=== PATIENT | female | born 1960 | race African-American/Black ===

== ENCOUNTER 2018-01-06 18:32 | Inpatient (IN) | payer OTHER ==
[2018-01-06] MEDS: ONDANSETRON 4 MG INJ IV (22:11)
[2018-01-06] MEDS: morphine 4 MG/ML VIAL IV (22:11)
[2018-01-06] MEDS: SOD CHLORIDE 0.9% 1,000 ML IV (22:11)
[2018-01-06 22:38] LABS: ADD MAN DIFF? NO
[2018-01-06 22:43] LABS: WHITE BLOOD COUNT 11.8 10^3/ul (4.8-10.8)
[2018-01-06 22:43] LABS: ABNORMAL IP MESSAGE 1; BASOPHILS % 0.3 % (0.0-2.0); EOSINOPHILS # 0.1 10^3/ul (0.0-0.5); EOSINOPHILS % 0.8 % (0.0-7.0); HEMATOCRIT 41.5 % (37.0-47.0); HEMOGLOBIN 13.2 g/dl (12.0-16.0); LYMPHOCYTES # 1.5 10^3/ul (0.8-2.9); LYMPHOCYTES % 12.8 % (15.0-51.0); MEAN CORPUSCULAR HEMOGLOBIN 28.3 pg (29.0-33.0); MEAN CORPUSCULAR HGB CONC 31.8 g/dl (32.0-37.0); MEAN CORPUSCULAR VOLUME 88.9 fl (82.0-101.0); MEAN PLATELET VOLUME 13.3 fl (7.4-10.4); MONOCYTE # 0.5 10^3/ul (0.3-0.9); MONOCYTES % 4.1 % (0.0-11.0); NEUTROPHIL # 9.7 10^3/ul (1.6-7.5); NEUTROPHILS % 81.7 % (39.0-77.0); PLATELET COUNT 243 10^3/UL (140-415); RED BLOOD COUNT 4.67 10^6/ul (4.20-5.40); RED CELL DISTRIBUTION WIDTH 13.2 % (11.5-14.5)
[2018-01-06 22:46] LABS: POSITIVE DIFF @See below
[2018-01-06 23:02] LABS: INR 0.83; PROTIME 11.5 Sec (11.9-14.9); PT RATIO 0.9
[2018-01-06 23:04] LABS: PARTIAL THROMBOPLASTIN TIME 26.5 Sec (25.0-35.0)
[2018-01-06 23:06] LABS: ALANINE AMINOTRANSFERASE 10 IU/L (13-69); ALBUMIN 4.6 g/dl (3.3-4.9); ALBUMIN/GLOBULIN RATIO 0.93; ALKALINE PHOSPHATASE 91 IU/L (42-121); ANION GAP 22 (8-16); ASPARTATE AMINO TRANSFERASE 21 IU/L (15-46); BILIRUBIN,INDIRECT 0.6 mg/dl (0-1.1); BILIRUBIN,TOTAL 0.6 mg/dl (0.2-1.3); BLOOD UREA NITROGEN 37 mg/dl (7-20); CARBON DIOXIDE 23 mmol/L (21-31); CHLORIDE 98 mmol/L (97-110); CREATININE 2.12 mg/dl (0.44-1.00); GLUCOSE 286 mg/dl (70-220); LIPASE 32 U/L (23-300); POTASSIUM 4.9 mmol/L (3.5-5.1); SODIUM 138 mmol/L (135-144); TOTAL PROTEIN 9.5 g/dl (6.1-8.1)
[2018-01-06 23:17] LABS: TROPONIN-I < 0.012 ng/ml (0.000-0.120)
[2018-01-07] MEDS ORDERED: GLUCAGON 1 MG INJ IM (04:00)
[2018-01-07] MEDS ORDERED: GLUCOSE GEL 15 GRAM TUBE PO (04:00)
[2018-01-07] MEDS ORDERED: GLUCOSE GEL 15 GRAM TUBE BUCCAL (04:00)
[2018-01-07] MEDS ORDERED: VITAMIN A & D 5 GM OINT PACKET TOP (04:15)
[2018-01-07] MEDS: morphine 2 MG INJ IV ×3 (04:24→23:37)
[2018-01-07] MEDS: ONDANSETRON 4 MG INJ IV (04:24)
[2018-01-07] MEDS: DEXTROSE 5%-0.45% NACL 1,000 ML IV (04:30)
[2018-01-07] MEDS: INSULIN ASPART [NOVOLOG] 3 ML PEN SC ×5 (06:20→21:00)
[2018-01-07] MEDS: LORAZEPAM 2 MG INJ IV ×2 (06:42)
[2018-01-07 11:24] LABS: ADD MAN DIFF? NO
[2018-01-07 11:26] LABS: ABNORMAL IP MESSAGE 1; BASOPHILS % 0.1 % (0.0-2.0); EOSINOPHILS # 0.3 10^3/ul (0.0-0.5); EOSINOPHILS % 3.2 % (0.0-7.0); HEMATOCRIT 36.2 % (37.0-47.0); HEMOGLOBIN 11.8 g/dl (12.0-16.0); LYMPHOCYTES # 1.6 10^3/ul (0.8-2.9); LYMPHOCYTES % 20.4 % (15.0-51.0); MEAN CORPUSCULAR HEMOGLOBIN 29.1 pg (29.0-33.0); MEAN CORPUSCULAR HGB CONC 32.6 g/dl (32.0-37.0); MEAN CORPUSCULAR VOLUME 89.4 fl (82.0-101.0); MEAN PLATELET VOLUME 13.4 fl (7.4-10.4); MONOCYTE # 0.8 10^3/ul (0.3-0.9); MONOCYTES % 10.2 % (0.0-11.0); NEUTROPHIL # 5.1 10^3/ul (1.6-7.5); NEUTROPHILS % 65.7 % (39.0-77.0); PLATELET COUNT 203 10^3/UL (140-415); RED BLOOD COUNT 4.05 10^6/ul (4.20-5.40); RED CELL DISTRIBUTION WIDTH 13.1 % (11.5-14.5)
[2018-01-07 11:26] LABS: WHITE BLOOD COUNT 7.8 10^3/ul (4.8-10.8)
[2018-01-07 11:53] LABS: ANION GAP 16 (8-16); BLOOD UREA NITROGEN 42 mg/dl (7-20); CALCIUM 9.2 mg/dl (8.4-10.2); CARBON DIOXIDE 27 mmol/L (21-31); CHLORIDE 101 mmol/L (97-110); CREATININE 2.19 mg/dl (0.44-1.00); GLUCOSE 253 mg/dl (70-220); POTASSIUM 4.5 mmol/L (3.5-5.1); SODIUM 139 mmol/L (135-144)
[2018-01-07] MEDS: SOD CHLORIDE 0.45% 1,000 ML IV (14:32)
[2018-01-07] MEDS: NA PHOSPHATE/BIPHOS 133 ML ENEMA PR (17:19)
[2018-01-07 22:24] LABS: ADD UMIC YES; UR ASCORBIC ACID NEGATIVE (NEGATIVE); UR BACTERIA MANY /HPF (NONE SEEN); UR BILIRUBIN (Dip) NEGATIVE (NEGATIVE); UR BLOOD (Dip) 1+ mg/dL (NEGATIVE); UR CLARITY CLOUDY (CLEAR); UR COLOR RED (YELLOW); UR GLUCOSE (Dip) 2+ mg/dL (NEGATIVE); UR KETONES (Dip) NEGATIVE (NEGATIVE); UR LEUKOCYTE ESTERASE (Dip) 3+ Leu/ul (NEGATIVE); UR NITRITE (Dip) NEGATIVE (NEGATIVE); UR RBC 5 /HPF (0-5); UR SPECIFIC GRAVITY (Dip) 1.013 (1.003-1.030); UR SQUAMOUS EPITHELIAL CELL FEW /HPF (FEW); UR TOTAL PROTEIN (Dip) 2+ mg/dl (NEGATIVE); UR UROBILINOGEN (Dip) NEGATIVE (NEGATIVE); UR WBC > 182 /HPF (0-5)
[2018-01-07 22:29] LABS: SODIUM,URINE RANDOM 118 mmol/L (30-90)
[2018-01-07 22:29] LABS: CREATININE,URINE RANDOM 71.26 mg/dl (20-320)
[2018-01-08] MEDS: INSULIN ASPART [NOVOLOG] 3 ML PEN SC ×6 (01:00→21:00)
[2018-01-08] MEDS: SOD CHLORIDE 0.45% 1,000 ML IV ×2 (01:19→11:21)
[2018-01-08] MEDS: morphine 2 MG INJ IV ×4 (03:06→22:45)
[2018-01-08 07:36] LABS: WHITE BLOOD COUNT 6.5 10^3/ul (4.8-10.8)
[2018-01-08 07:36] LABS: ABNORMAL IP MESSAGE 1; HEMATOCRIT 34.2 % (37.0-47.0); HEMOGLOBIN 10.9 g/dl (12.0-16.0); MEAN CORPUSCULAR HEMOGLOBIN 28.5 pg (29.0-33.0); MEAN CORPUSCULAR HGB CONC 31.9 g/dl (32.0-37.0); MEAN CORPUSCULAR VOLUME 89.3 fl (82.0-101.0); MEAN PLATELET VOLUME 13.2 fl (7.4-10.4); PLATELET COUNT 203 10^3/UL (140-415); RED BLOOD COUNT 3.83 10^6/ul (4.20-5.40); RED CELL DISTRIBUTION WIDTH 13.1 % (11.5-14.5)
[2018-01-08 07:40] LABS: ADD MAN DIFF? YES; POSITIVE DIFF @See below
[2018-01-08 08:53] LABS: ANION GAP 18 (8-16); BLOOD UREA NITROGEN 34 mg/dl (7-20); CALCIUM 8.5 mg/dl (8.4-10.2); CARBON DIOXIDE 26 mmol/L (21-31); CHLORIDE 98 mmol/L (97-110); CREATININE 1.64 mg/dl (0.44-1.00); GLUCOSE 195 mg/dl (70-220); MAGNESIUM 1.3 mg/dl (1.7-2.5); PHOSPHORUS 5.2 mg/dl (2.5-4.9); POTASSIUM 3.7 mmol/L (3.5-5.1); SODIUM 138 mmol/L (135-144)
[2018-01-08 09:00] LABS: ANISOCYTOSIS 1+ (0-0); BAND NEUTROPHILS #M 1.6 10^3/ul (0.0-0.6); BAND NEUTROPHILS % (M) 26 % (0-4); EOSINOPHILS % (M) 7 % (0-7); GIANT THROMBO% (M) 1 % (0-0); HYPOCHROMASIA 2+ (0-0); LYMPHOCYTES #M 2.6 10^3/ul (0.8-2.9); LYMPHOCYTES % (M) 41 % (15-51); MONOCYTE #M 0.7 10^3/ul (0.3-0.9); MONOCYTES % (M) 11 % (0-11); PLATELET ESTIMATE NORMAL; POLYCHROMASIA 1+ (0-0); SEG NEUT #M 1.1 10^3/ul (1.6-7.5); SEGMENTED NEUTROPHILS (M) % 15 % (39-77); SMUDGE%M 12 % (0-0)
[2018-01-08] MEDS: MAGNESIUM SULFATE 3 GM in DEXTROSE 5% 100 ML IVPB (17:14)
[2018-01-08] MEDS: DIATR MEGLU/DIATRIZOATE SODIUM 120 ML BTL (19:30)
[2018-01-08] MEDS: hydrALAzine 20 MG INJ IV (22:08)
[2018-01-09] MEDS: SOD CHLORIDE 0.45% 1,000 ML IV ×4 (02:01→19:53)
[2018-01-09] MEDS: INSULIN ASPART [NOVOLOG] 3 ML PEN SC ×6 (02:21→20:48)
[2018-01-09] MEDS: morphine 2 MG INJ IV ×5 (04:48→22:12)
[2018-01-09 05:53] LABS: ANION GAP 21 (8-16); BLOOD UREA NITROGEN 37 mg/dl (7-20); CALCIUM 9.4 mg/dl (8.4-10.2); CARBON DIOXIDE 28 mmol/L (21-31); CHLORIDE 94 mmol/L (97-110); CREATININE 1.66 mg/dl (0.44-1.00); GLUCOSE 206 mg/dl (70-220); MAGNESIUM 2.7 mg/dl (1.7-2.5); PHOSPHORUS 5.4 mg/dl (2.5-4.9); POTASSIUM 3.7 mmol/L (3.5-5.1); SODIUM 139 mmol/L (135-144)
[2018-01-09] MEDS: ONDANSETRON 4 MG INJ IV (09:07)
[2018-01-09] MEDS ORDERED: VITAMIN A & D 5 GM OINT PACKET TOP (12:58)
[2018-01-09] MEDS: hydrALAzine 20 MG INJ IV (18:17)
[2018-01-09] MEDS ORDERED: NICOTINE (14 MG/24 HR) PATCH TRANSDERM (18:30)
[2018-01-09] MEDS: CIPROFLOXACIN 400MG/D5W 200 ML IVPB (19:53)
[2018-01-09] MEDS: metroNIDAZOLE 500 MG/NS (PMX) 100 ML IVPB (22:11)
[2018-01-10] MEDS: INSULIN ASPART [NOVOLOG] 3 ML PEN SC ×6 (01:00→20:44)
[2018-01-10] MEDS: morphine 2 MG INJ IV ×4 (02:14→20:28)
[2018-01-10] MEDS: hydrALAzine 20 MG INJ IV ×3 (02:20→21:22)
[2018-01-10] MEDS: metroNIDAZOLE 500 MG/NS (PMX) 100 ML IVPB ×3 (05:30→22:00)
[2018-01-10 05:33] LABS: WHITE BLOOD COUNT 4.6 10^3/ul (4.8-10.8)
[2018-01-10 05:33] LABS: HEMATOCRIT 31.4 % (37.0-47.0); HEMOGLOBIN 10.6 g/dl (12.0-16.0); MEAN CORPUSCULAR HGB CONC 33.8 g/dl (32.0-37.0); MEAN PLATELET VOLUME 12.9 fl (7.4-10.4); PLATELET COUNT 224 10^3/UL (140-415); RED BLOOD COUNT 3.65 10^6/ul (4.20-5.40); RED CELL DISTRIBUTION WIDTH 12.4 % (11.5-14.5)
[2018-01-10 05:38] LABS: ADD MAN DIFF? YES; POSITIVE DIFF @See below
[2018-01-10 05:46] LABS: HEMOGLOBIN A1C 10.9 % (0-5.9)
[2018-01-10 05:50] LABS: INR 1.04; PROTIME 13.7 Sec (11.9-14.9); PT RATIO 1.1
[2018-01-10 06:05] LABS: ALANINE AMINOTRANSFERASE 16 IU/L (13-69); ALBUMIN 3.5 g/dl (3.3-4.9); ALBUMIN/GLOBULIN RATIO 0.94; ALKALINE PHOSPHATASE 74 IU/L (42-121); ANION GAP 20 (8-16); ASPARTATE AMINO TRANSFERASE 15 IU/L (15-46); BILIRUBIN,INDIRECT 0.3 mg/dl (0-1.1); BILIRUBIN,TOTAL 0.3 mg/dl (0.2-1.3); BLOOD UREA NITROGEN 43 mg/dl (7-20); CALCIUM 8.6 mg/dl (8.4-10.2); CARBON DIOXIDE 25 mmol/L (21-31); CHLORIDE 94 mmol/L (97-110); GLUCOSE 114 mg/dl (70-220); PHOSPHORUS 4.8 mg/dl (2.5-4.9); POTASSIUM 3.7 mmol/L (3.5-5.1); SODIUM 135 mmol/L (135-144); TOTAL PROTEIN 7.2 g/dl (6.1-8.1)
[2018-01-10] MEDS: D5W-0.45 NACL + KCL 10 MEQ 1,000 ML IV ×2 (06:58→17:16)
[2018-01-10] MEDS: FAMOTIDINE 20 MG INJ IV (09:04)
[2018-01-10 09:16] LABS: ANISOCYTOSIS 1+ (0-0); BAND NEUTROPHILS #M 1.7 10^3/ul (0.0-0.6); BAND NEUTROPHILS % (M) 38 % (0-4); EOSINOPHILS % (M) 5 % (0-7); GIANT THROMBO% (M) 10 % (0-0); HYPOCHROMASIA 1+ (0-0); LYMPHOCYTES #M 1.2 10^3/ul (0.8-2.9); LYMPHOCYTES % (M) 28 % (15-51); MONOCYTE #M 0.7 10^3/ul (0.3-0.9); MONOCYTES % (M) 17 % (0-11); PLATELET ESTIMATE NORMAL; POLYCHROMASIA 3+ (0-0); REACTIVE LYMPHOCYTES #M 0.1 10^3/ul (0.0-0.0); REACTIVE LYMPHOCYTES% (M) 3 % (0-0); SEG NEUT #M 0.5 10^3/ul (1.6-7.5); SEGMENTED NEUTROPHILS (M) % 9 % (39-77); SMUDGE%M 6 % (0-0)
[2018-01-10 16:35] LABS: ADD UMIC YES; UR ASCORBIC ACID NEGATIVE (NEGATIVE); UR BILIRUBIN (Dip) NEGATIVE (NEGATIVE); UR BLOOD (Dip) 1+ mg/dL (NEGATIVE); UR CLARITY SLIGHTLY CLOUDY (CLEAR); UR COLOR YELLOW (YELLOW); UR GLUCOSE (Dip) NEGATIVE (NEGATIVE); UR KETONES (Dip) TRACE mg/dL (NEGATIVE); UR LEUKOCYTE ESTERASE (Dip) TRACE Leu/ul (NEGATIVE); UR NITRITE (Dip) NEGATIVE (NEGATIVE); UR RBC 0 /HPF (0-5); UR SPECIFIC GRAVITY (Dip) 1.016 (1.003-1.030); UR SQUAMOUS EPITHELIAL CELL FEW /HPF (FEW); UR TOTAL PROTEIN (Dip) 2+ mg/dl (NEGATIVE); UR UROBILINOGEN (Dip) NEGATIVE (NEGATIVE); UR WBC 8 /HPF (0-5)
[2018-01-10 16:48] LABS: SODIUM,URINE RANDOM 57 mmol/L (30-90)
[2018-01-10 16:53] LABS: CREATININE,URINE RANDOM 113.17 mg/dl (20-320)
[2018-01-10] MEDS: CIPROFLOXACIN 400MG/D5W 200 ML IVPB (20:21)
[2018-01-11] MEDS: morphine 2 MG INJ IV ×3 (01:18→22:58)
[2018-01-11] MEDS: INSULIN ASPART [NOVOLOG] 3 ML PEN SC ×6 (01:21→21:00)
[2018-01-11] MEDS: D5W-0.45 NACL + KCL 10 MEQ 1,000 ML IV ×2 (04:28→13:05)
[2018-01-11] MEDS: metroNIDAZOLE 500 MG/NS (PMX) 100 ML IVPB ×3 (05:31→22:17)
[2018-01-11 05:43] LABS: HEMATOCRIT 33.1 % (37.0-47.0); MEAN CORPUSCULAR HEMOGLOBIN 28.7 pg (29.0-33.0); MEAN CORPUSCULAR HGB CONC 33.2 g/dl (32.0-37.0); MEAN CORPUSCULAR VOLUME 86.4 fl (82.0-101.0); MEAN PLATELET VOLUME 12.7 fl (7.4-10.4); PLATELET COUNT 236 10^3/UL (140-415); RED BLOOD COUNT 3.83 10^6/ul (4.20-5.40); RED CELL DISTRIBUTION WIDTH 12.4 % (11.5-14.5)
[2018-01-11 05:43] LABS: WHITE BLOOD COUNT 5.3 10^3/ul (4.8-10.8)
[2018-01-11 05:48] LABS: POSITIVE DIFF @See below
[2018-01-11 05:49] LABS: ADD MAN DIFF? YES
[2018-01-11 05:53] LABS: ALANINE AMINOTRANSFERASE 12 IU/L (13-69); ALBUMIN 3.5 g/dl (3.3-4.9); ALKALINE PHOSPHATASE 78 IU/L (42-121); ANION GAP 17 (8-16); ASPARTATE AMINO TRANSFERASE 12 IU/L (15-46); BILIRUBIN,INDIRECT 0.3 mg/dl (0-1.1); BILIRUBIN,TOTAL 0.3 mg/dl (0.2-1.3); BLOOD UREA NITROGEN 35 mg/dl (7-20); CALCIUM 8.6 mg/dl (8.4-10.2); CARBON DIOXIDE 25 mmol/L (21-31); CHLORIDE 97 mmol/L (97-110); CREATININE 1.74 mg/dl (0.44-1.00); GLUCOSE 197 mg/dl (70-220); POTASSIUM 3.9 mmol/L (3.5-5.1); SODIUM 135 mmol/L (135-144)
[2018-01-11 06:13] LABS: ANION GAP 17 (8-16); BLOOD UREA NITROGEN 35 mg/dl (7-20); CALCIUM 8.7 mg/dl (8.4-10.2); CARBON DIOXIDE 25 mmol/L (21-31); CHLORIDE 96 mmol/L (97-110); CREATININE 1.76 mg/dl (0.44-1.00); GLUCOSE 200 mg/dl (70-220); MAGNESIUM 1.8 mg/dl (1.7-2.5); POTASSIUM 3.9 mmol/L (3.5-5.1); SODIUM 134 mmol/L (135-144)
[2018-01-11 06:29] LABS: INR 1.02; PROTIME 13.5 Sec (11.9-14.9); PT RATIO 1.1
[2018-01-11] MEDS ORDERED: LIDOCAINE 2% (SDV) 5 ML INJ (07:00)
[2018-01-11] MEDS ORDERED: DEXAMETHASONE 4 MG/ML 1 ML INJ (07:00)
[2018-01-11] MEDS ORDERED: SUCCINYLCHOLINE CHLORIDE 100 MG/5 ML SYG IV (07:00)
[2018-01-11] MEDS ORDERED: ONDANSETRON 4 MG INJ (07:00)
[2018-01-11] MEDS ORDERED: ROCURONIUM 50 MG INJ (07:00)
[2018-01-11] MEDS ORDERED: CEFAZOLIN 1 GM INJ (07:00)
[2018-01-11 07:52] LABS: ANISOCYTOSIS 1+ (0-0); BAND NEUTROPHILS #M 2.8 10^3/ul (0.0-0.6); BAND NEUTROPHILS % (M) 53 % (0-4); EOSINOPHILS % (M) 4 % (0-7); GIANT THROMBO% (M) 12 % (0-0); HYPOCHROMASIA 1+ (0-0); LYMPHOCYTES % (M) 19 % (15-51); MONOCYTE #M 0.4 10^3/ul (0.3-0.9); MONOCYTES % (M) 8 % (0-11); PLATELET ESTIMATE NORMAL; POLYCHROMASIA 1+ (0-0); SEGMENTED NEUTROPHILS (M) % 16 % (39-77); SMUDGE%M 4 % (0-0)
[2018-01-11] MEDS: FAMOTIDINE 20 MG INJ IV (09:01)
[2018-01-11 17:16] LABS: CREATININE, RANDOM URINE 89 mg/dL (20-320); MICROALBUMIN 43.2 mg/dL; MICROALBUMIN/CREATININE RATIO 485 (<30)
[2018-01-11] MEDS ORDERED: ALBUTEROL 0.083% (NEB) 2.5 MG/3 ML AMP HHN (18:00)
[2018-01-11] MEDS ORDERED: METOCLOPRAMIDE 10 MG INJ IV (18:00)
[2018-01-11] MEDS ORDERED: ONDANSETRON 4 MG INJ IV (18:00)
[2018-01-11] MEDS ORDERED: FENTAnyl 50 MCG/ML VIAL IV ×2 (18:00)
[2018-01-11] MEDS ORDERED: HYDROmorphONE 1 MG/5 ML IV SYRINGE IV ×3 (18:00→21:32)
[2018-01-11] MEDS ORDERED: LABETALOL HCL 20MG INJ IV (18:00)
[2018-01-11] MEDS ORDERED: MEPERIDINE 25 MG INJ IV (18:00)
[2018-01-11] MEDS ORDERED: DIPHENHYDRAMINE 50 MG INJ IV (18:00)
[2018-01-11] MEDS ORDERED: MIDAZOLAM 1 MG/ML 2 ML INJ IV (18:00)
[2018-01-11] MEDS ORDERED: hydrALAzine 20 MG INJ IV (18:00)
[2018-01-11] MEDS ORDERED: EPHEDrine SULFATE 50 MG/5 ML SYG IV (18:00)
[2018-01-11] MEDS ORDERED: metroNIDAZOLE 500 MG/NS (PMX) 100 ML IVPB (19:26)
[2018-01-11] MEDS ORDERED: BUPIVACAINE 0.5%/EPI (SDV) 30 ML INJ (19:41)
[2018-01-11] MEDS ORDERED: LIDOCAINE 1% (MPF) 30 ML INJ (19:41)
[2018-01-11] MEDS: LIDOCAINE 1% (MPF) 30 ML INJ INJ (20:16)
[2018-01-11] MEDS: BUPIVACAINE 0.5%/EPI (SDV) 30 ML INJ INJ (20:16)
[2018-01-11] MEDS ORDERED: SUGAMMADEX SODIUM 200 MG/2 ML VIAL IV (21:07)
[2018-01-11] MEDS ORDERED: PROPOFOL 20 ML (21:07)
[2018-01-11] MEDS ORDERED: FENTAnyl 50 MCG/ML VIAL (21:32)
[2018-01-11] MEDS: FENTAnyl 50 MCG/ML VIAL IV (21:33)
[2018-01-11] MEDS: HYDROmorphONE 1 MG/5 ML IV SYRINGE IV (21:34)
[2018-01-12] MEDS: hydrALAzine 20 MG INJ IV (00:51)
[2018-01-12] MEDS: D5W-0.45 NACL + KCL 10 MEQ 1,000 ML IV ×3 (00:56→14:41)
[2018-01-12] MEDS: INSULIN ASPART [NOVOLOG] 3 ML PEN SC ×6 (01:03→21:00)
[2018-01-12] MEDS: morphine 2 MG INJ IV ×5 (02:44→20:07)
[2018-01-12] MEDS: INSULIN GLARGINE [LANtus] 3 ML PEN SC ×3 (03:18→22:21)
[2018-01-12] MEDS: metroNIDAZOLE 500 MG/NS (PMX) 100 ML IVPB ×2 (05:18→14:36)
[2018-01-12 05:34] LABS: ANION GAP 17 (8-16); BLOOD UREA NITROGEN 28 mg/dl (7-20); CARBON DIOXIDE 23 mmol/L (21-31); CHLORIDE 99 mmol/L (97-110); CREATININE 1.58 mg/dl (0.44-1.00); GLUCOSE 326 mg/dl (70-220); MAGNESIUM 1.5 mg/dl (1.7-2.5); PHOSPHORUS 3.6 mg/dl (2.5-4.9); POTASSIUM 4.1 mmol/L (3.5-5.1); SODIUM 135 mmol/L (135-144)
[2018-01-12] MEDS: FAMOTIDINE 20 MG INJ IV (09:27)
[2018-01-12] MEDS: MAGNESIUM SULFATE 2 GM/50 ML 50 ML IVPB (09:54)
[2018-01-13] MEDS: morphine 2 MG INJ IV ×7 (01:24→23:44)
[2018-01-13] MEDS: INSULIN ASPART [NOVOLOG] 3 ML PEN SC ×6 (01:29→20:46)
[2018-01-13 05:41] LABS: WHITE BLOOD COUNT 11.8 10^3/ul (4.8-10.8)
[2018-01-13 05:41] LABS: ABNORMAL IP MESSAGE 1; HEMOGLOBIN 9.4 g/dl (12.0-16.0); MEAN CORPUSCULAR HEMOGLOBIN 28.6 pg (29.0-33.0); MEAN CORPUSCULAR HGB CONC 33.6 g/dl (32.0-37.0); MEAN CORPUSCULAR VOLUME 85.1 fl (82.0-101.0); MEAN PLATELET VOLUME 12.5 fl (7.4-10.4); PLATELET COUNT 250 10^3/UL (140-415); RED BLOOD COUNT 3.29 10^6/ul (4.20-5.40); RED CELL DISTRIBUTION WIDTH 12.7 % (11.5-14.5)
[2018-01-13] MEDS: D5W-0.45 NACL + KCL 10 MEQ 1,000 ML IV ×3 (05:52→23:45)
[2018-01-13 05:53] LABS: ADD MAN DIFF? YES; POSITIVE DIFF @See below
[2018-01-13 06:26] LABS: ANION GAP 15 (8-16); BLOOD UREA NITROGEN 24 mg/dl (7-20); CALCIUM 8.1 mg/dl (8.4-10.2); CARBON DIOXIDE 23 mmol/L (21-31); CHLORIDE 103 mmol/L (97-110); CREATININE 1.42 mg/dl (0.44-1.00); GLUCOSE 124 mg/dl (70-220); MAGNESIUM 2.1 mg/dl (1.7-2.5); PHOSPHORUS 2.5 mg/dl (2.5-4.9); POTASSIUM 4.2 mmol/L (3.5-5.1); SODIUM 137 mmol/L (135-144)
[2018-01-13 09:03] LABS: ANISOCYTOSIS 1+ (0-0); BAND NEUTROPHILS #M 2.2 10^3/ul (0.0-0.6); BAND NEUTROPHILS % (M) 19 % (0-4); GIANT THROMBO% (M) 10 % (0-0); LYMPHOCYTES % (M) 9 % (15-51); MONOCYTE #M 1.1 10^3/ul (0.3-0.9); MONOCYTES % (M) 10 % (0-11); PLATELET ESTIMATE NORMAL; POIKILOCYTOSIS 2+ (0-0); SEG NEUT #M 7.6 10^3/ul (1.6-7.5); SEGMENTED NEUTROPHILS (M) % 62 % (39-77); SMUDGE%M 9 % (0-0)
[2018-01-13] MEDS: FAMOTIDINE 20 MG INJ IV (09:08)
[2018-01-13] MEDS: INSULIN GLARGINE [LANtus] 3 ML PEN SC (20:46)
[2018-01-13] MEDS: ONDANSETRON 4 MG INJ IV (20:49)
[2018-01-13] MEDS: hydrALAzine 20 MG INJ IV (20:53)
[2018-01-14] MEDS: INSULIN ASPART [NOVOLOG] 3 ML PEN SC ×6 (01:00→21:44)
[2018-01-14] MEDS: D5W-0.45 NACL + KCL 10 MEQ 1,000 ML IV ×3 (01:05→22:09)
[2018-01-14] MEDS: DEXTROSE 50% 50 ML SYRINGE IV (01:13)
[2018-01-14] MEDS: morphine 4 MG/ML VIAL IV (04:14)
[2018-01-14 06:24] LABS: ANION GAP 14 (8-16); BLOOD UREA NITROGEN 16 mg/dl (7-20); CALCIUM 8.3 mg/dl (8.4-10.2); CARBON DIOXIDE 23 mmol/L (21-31); CHLORIDE 103 mmol/L (97-110); CREATININE 1.26 mg/dl (0.44-1.00); GLUCOSE 99 mg/dl (70-220); MAGNESIUM 1.6 mg/dl (1.7-2.5); PHOSPHORUS 2.9 mg/dl (2.5-4.9); POTASSIUM 4.2 mmol/L (3.5-5.1); SODIUM 136 mmol/L (135-144)
[2018-01-14] MEDS: FAMOTIDINE 20 MG INJ IV (09:44)
[2018-01-14] MEDS: MAGNESIUM SULFATE 2 GM/50 ML 50 ML IVPB (09:45)
[2018-01-14] MEDS: hydrALAzine 20 MG INJ IV ×2 (11:42→16:17)
[2018-01-14] MEDS: OXYCODONE/ACETAMINOPHEN (5/325) TAB PO (16:19)
[2018-01-14] MEDS: INSULIN GLARGINE [LANtus] 3 ML PEN SC (21:44)
[2018-01-15] MEDS: INSULIN ASPART [NOVOLOG] 3 ML PEN SC ×6 (01:50→21:15)
[2018-01-15] MEDS: morphine 2 MG INJ IV ×3 (04:52→21:48)
[2018-01-15 05:22] LABS: ADD MAN DIFF? NO
[2018-01-15 05:32] LABS: BASOPHILS % 0.3 % (0.0-2.0); EOSINOPHILS # 0.3 10^3/ul (0.0-0.5); EOSINOPHILS % 2.5 % (0.0-7.0); HEMATOCRIT 33.2 % (37.0-47.0); LYMPHOCYTES % 16.3 % (15.0-51.0); MEAN CORPUSCULAR HEMOGLOBIN 28.4 pg (29.0-33.0); MEAN CORPUSCULAR HGB CONC 33.1 g/dl (32.0-37.0); MEAN CORPUSCULAR VOLUME 85.8 fl (82.0-101.0); MEAN PLATELET VOLUME 11.9 fl (7.4-10.4); MONOCYTE # 1.1 10^3/ul (0.3-0.9); MONOCYTES % 9.2 % (0.0-11.0); NEUTROPHIL # 8.5 10^3/ul (1.6-7.5); NEUTROPHILS % 70.9 % (39.0-77.0); PLATELET COUNT 325 10^3/UL (140-415); RED BLOOD COUNT 3.87 10^6/ul (4.20-5.40); RED CELL DISTRIBUTION WIDTH 12.1 % (11.5-14.5)
[2018-01-15 05:40] LABS: POSITIVE DIFF @See below
[2018-01-15 05:56] LABS: ANION GAP 17 (8-16); BLOOD UREA NITROGEN 12 mg/dl (7-20); CALCIUM 8.4 mg/dl (8.4-10.2); CARBON DIOXIDE 22 mmol/L (21-31); CHLORIDE 105 mmol/L (97-110); CREATININE 1.22 mg/dl (0.44-1.00); GLUCOSE 129 mg/dl (70-220); MAGNESIUM 1.8 mg/dl (1.7-2.5); PHOSPHORUS 3.5 mg/dl (2.5-4.9); POTASSIUM 4.5 mmol/L (3.5-5.1); SODIUM 139 mmol/L (135-144)
[2018-01-15] MEDS: D5W-0.45 NACL + KCL 10 MEQ 1,000 ML IV ×2 (07:05→11:34)
[2018-01-15] MEDS: FAMOTIDINE 20 MG INJ IV (09:31)
[2018-01-15] MEDS: hydrALAzine 20 MG INJ IV ×2 (09:32→20:57)
[2018-01-15] MEDS: KETOROLAC 15 MG INJ IV ×2 (17:49→23:59)
[2018-01-15] MEDS: INSULIN GLARGINE [LANtus] 3 ML PEN SC (21:14)
[2018-01-16] MEDS: KETOROLAC 15 MG INJ IV ×2 (05:12→10:18)
[2018-01-16 05:35] LABS: ADD MAN DIFF? NO
[2018-01-16 05:42] LABS: WHITE BLOOD COUNT 9.9 10^3/ul (4.8-10.8)
[2018-01-16 05:42] LABS: BASOPHILS % 0.2 % (0.0-2.0); EOSINOPHILS # 0.3 10^3/ul (0.0-0.5); EOSINOPHILS % 2.5 % (0.0-7.0); HEMATOCRIT 30.4 % (37.0-47.0); HEMOGLOBIN 9.9 g/dl (12.0-16.0); LYMPHOCYTES # 2.5 10^3/ul (0.8-2.9); LYMPHOCYTES % 25.7 % (15.0-51.0); MEAN CORPUSCULAR HEMOGLOBIN 28.1 pg (29.0-33.0); MEAN CORPUSCULAR HGB CONC 32.6 g/dl (32.0-37.0); MEAN CORPUSCULAR VOLUME 86.4 fl (82.0-101.0); MEAN PLATELET VOLUME 11.9 fl (7.4-10.4); MONOCYTE # 1.1 10^3/ul (0.3-0.9); MONOCYTES % 11.2 % (0.0-11.0); NEUTROPHIL # 5.9 10^3/ul (1.6-7.5); NEUTROPHILS % 59.9 % (39.0-77.0); PLATELET COUNT 302 10^3/UL (140-415); RED BLOOD COUNT 3.52 10^6/ul (4.20-5.40); RED CELL DISTRIBUTION WIDTH 13.3 % (11.5-14.5)
[2018-01-16 06:01] LABS: ANION GAP 13 (8-16); BLOOD UREA NITROGEN 15 mg/dl (7-20); CALCIUM 8.3 mg/dl (8.4-10.2); CARBON DIOXIDE 22 mmol/L (21-31); CHLORIDE 109 mmol/L (97-110); CREATININE 1.22 mg/dl (0.44-1.00); GLUCOSE 53 mg/dl (70-220); MAGNESIUM 1.5 mg/dl (1.7-2.5); PHOSPHORUS 3.9 mg/dl (2.5-4.9); POTASSIUM 4.7 mmol/L (3.5-5.1); SODIUM 139 mmol/L (135-144)
[2018-01-16] MEDS: INSULIN ASPART [NOVOLOG] 3 ML PEN SC ×4 (07:50→20:41)
[2018-01-16] MEDS: FAMOTIDINE 20 MG INJ IV (08:52)
[2018-01-16] MEDS: MAGNESIUM SULFATE 2 GM/50 ML 50 ML IVPB (08:52)
[2018-01-16] MEDS: hydrALAzine 20 MG INJ IV (13:51)
[2018-01-16] MEDS: INSULIN GLARGINE [LANtus] 3 ML PEN SC (20:40)
[2018-01-16] MEDS: morphine 2 MG INJ IV (20:47)
[2018-01-17 05:32] LABS: ANION GAP 13 (8-16); BLOOD UREA NITROGEN 19 mg/dl (7-20); CALCIUM 8.2 mg/dl (8.4-10.2); CARBON DIOXIDE 22 mmol/L (21-31); CHLORIDE 110 mmol/L (97-110); CREATININE 1.36 mg/dl (0.44-1.00); MAGNESIUM 1.5 mg/dl (1.7-2.5); PHOSPHORUS 4.3 mg/dl (2.5-4.9); POTASSIUM 4.4 mmol/L (3.5-5.1); SODIUM 141 mmol/L (135-144)
[2018-01-17 05:39] LABS: GLUCOSE 36 mg/dl (70-220)
[2018-01-17] MEDS: GLUCOSE GEL 15 GRAM TUBE PO (06:03)
[2018-01-17] MEDS: DEXTROSE 50% 50 ML SYRINGE IV ×2 (06:28→13:09)
[2018-01-17 06:55] LABS: GLUCOSE 46 mg/dl (70-220)
[2018-01-17] MEDS: morphine 2 MG INJ IV ×3 (07:47→20:40)
[2018-01-17] MEDS: INSULIN ASPART [NOVOLOG] 3 ML PEN SC ×4 (07:50→20:38)
[2018-01-17] MEDS: FAMOTIDINE 20 MG INJ IV (08:34)
[2018-01-17] MEDS: MAGNESIUM SULFATE 2 GM/50 ML 50 ML IVPB (12:46)
[2018-01-17] MEDS: hydrALAzine 20 MG INJ IV (12:58)
[2018-01-18] MEDS: BISACODYL 10 MG SUPP PR (02:04)
[2018-01-18] MEDS: DIAZEPAM 5 MG/ML SYG IV ×2 (02:30→03:03)
[2018-01-18] MEDS: DEXTROSE 5%-0.45% NACL 1,000 ML IV ×2 (03:04→18:11)
[2018-01-18] MEDS: morphine 2 MG INJ IV ×3 (05:07→15:39)
[2018-01-18 05:37] LABS: ADD MAN DIFF? NO
[2018-01-18 05:43] LABS: WHITE BLOOD COUNT 15.9 10^3/ul (4.8-10.8)
[2018-01-18 05:43] LABS: BASOPHILS % 0.2 % (0.0-2.0); EOSINOPHILS % 0.2 % (0.0-7.0); HEMATOCRIT 29.2 % (37.0-47.0); HEMOGLOBIN 9.8 g/dl (12.0-16.0); LYMPHOCYTES # 1.8 10^3/ul (0.8-2.9); LYMPHOCYTES % 11.2 % (15.0-51.0); MEAN CORPUSCULAR HEMOGLOBIN 28.4 pg (29.0-33.0); MEAN CORPUSCULAR HGB CONC 33.6 g/dl (32.0-37.0); MEAN CORPUSCULAR VOLUME 84.6 fl (82.0-101.0); MEAN PLATELET VOLUME 11.7 fl (7.4-10.4); MONOCYTE # 1.4 10^3/ul (0.3-0.9); MONOCYTES % 8.7 % (0.0-11.0); NEUTROPHIL # 12.5 10^3/ul (1.6-7.5); NEUTROPHILS % 78.9 % (39.0-77.0); PLATELET COUNT 308 10^3/UL (140-415); RED BLOOD COUNT 3.45 10^6/ul (4.20-5.40)
[2018-01-18 06:12] LABS: ANION GAP 17 (8-16); BLOOD UREA NITROGEN 18 mg/dl (7-20); CALCIUM 8.3 mg/dl (8.4-10.2); CARBON DIOXIDE 24 mmol/L (21-31); CHLORIDE 102 mmol/L (97-110); CREATININE 1.28 mg/dl (0.44-1.00); GLUCOSE 93 mg/dl (70-220); PHOSPHORUS 3.7 mg/dl (2.5-4.9); POTASSIUM 4.9 mmol/L (3.5-5.1); SODIUM 138 mmol/L (135-144)
[2018-01-18] MEDS: INSULIN ASPART [NOVOLOG] 3 ML PEN SC ×4 (07:50→21:00)
[2018-01-18] MEDS: POLYETHYLENE GLYCOL 17 GM PACKET PO (08:46)
[2018-01-18] MEDS: FAMOTIDINE 20 MG INJ IV (08:46)
[2018-01-18] MEDS ORDERED: DOCUSATE SODIUM 100 MG CAP PO (09:00)
[2018-01-18] MEDS: hydrALAzine 20 MG INJ IV (13:53)
[2018-01-18] MEDS: morphine LIQ (10 MG/5 ML) CUP PO (15:25)
[2018-01-18] MEDS: DIAZEPAM 5 MG/ML SYG IM (15:30)
[2018-01-18] MEDS: HYDROmorphONE 1 MG/ML SYG IV ×2 (16:00→21:36)
[2018-01-18] MEDS: CLONIDINE 0.1 MG/24 HR PATCH TRANSDERM (18:26)
[2018-01-19] MEDS: HYDROmorphONE 1 MG/ML SYG IV ×4 (05:17→22:10)
[2018-01-19 05:50] LABS: ADD MAN DIFF? NO
[2018-01-19 05:55] LABS: BASOPHILS % 0.2 % (0.0-2.0); EOSINOPHILS # 0.1 10^3/ul (0.0-0.5); EOSINOPHILS % 0.8 % (0.0-7.0); HEMATOCRIT 27.5 % (37.0-47.0); HEMOGLOBIN 9.1 g/dl (12.0-16.0); LYMPHOCYTES # 1.9 10^3/ul (0.8-2.9); LYMPHOCYTES % 14.4 % (15.0-51.0); MEAN CORPUSCULAR HEMOGLOBIN 28.4 pg (29.0-33.0); MEAN CORPUSCULAR HGB CONC 33.1 g/dl (32.0-37.0); MEAN CORPUSCULAR VOLUME 85.9 fl (82.0-101.0); MEAN PLATELET VOLUME 11.9 fl (7.4-10.4); MONOCYTE # 1.1 10^3/ul (0.3-0.9); MONOCYTES % 8.2 % (0.0-11.0); NEUTROPHIL # 9.8 10^3/ul (1.6-7.5); NEUTROPHILS % 75.9 % (39.0-77.0); PLATELET COUNT 296 10^3/UL (140-415); RED CELL DISTRIBUTION WIDTH 13.1 % (11.5-14.5)
[2018-01-19 06:42] LABS: ALANINE AMINOTRANSFERASE 7 IU/L (13-69); ALBUMIN 2.7 g/dl (3.3-4.9); ALBUMIN/GLOBULIN RATIO 0.67; ALKALINE PHOSPHATASE 96 IU/L (42-121); ANION GAP 13 (8-16); ASPARTATE AMINO TRANSFERASE 17 IU/L (15-46); BILIRUBIN,INDIRECT 0.3 mg/dl (0-1.1); BILIRUBIN,TOTAL 0.3 mg/dl (0.2-1.3); BLOOD UREA NITROGEN 20 mg/dl (7-20); CARBON DIOXIDE 21 mmol/L (21-31); CHLORIDE 108 mmol/L (97-110); CREATININE 1.28 mg/dl (0.44-1.00); GLUCOSE 155 mg/dl (70-220); POTASSIUM 5.1 mmol/L (3.5-5.1); SODIUM 137 mmol/L (135-144); TOTAL PROTEIN 6.7 g/dl (6.1-8.1)
[2018-01-19 06:48] LABS: MAGNESIUM 1.7 mg/dl (1.7-2.5)
[2018-01-19 06:48] LABS: PHOSPHORUS 4.7 mg/dl (2.5-4.9)
[2018-01-19] MEDS: DEXTROSE 5%-0.45% NACL 1,000 ML IV (08:04)
[2018-01-19] MEDS: INSULIN ASPART [NOVOLOG] 3 ML PEN SC ×4 (08:06→20:14)
[2018-01-19] MEDS: IOHEXOL 300MG/ML 150 ML BTL ×2 (09:01)
[2018-01-19] MEDS: METHOCARBAMOL 750 MG TAB PO ×2 (09:14→17:34)
[2018-01-19] MEDS: POLYETHYLENE GLYCOL 17 GM PACKET PO (09:14)
[2018-01-19] MEDS: FAMOTIDINE 20 MG INJ IV (09:15)
[2018-01-19] MEDS: ENOXAPARIN 40 MG/0.4 ML SYG SC (09:20)
[2018-01-19] MEDS: INSULIN GLARGINE [LANtus] 3 ML PEN SC (20:16)
[2018-01-20] MEDS: METHOCARBAMOL 750 MG TAB PO ×3 (01:34→17:44)
[2018-01-20 06:08] LABS: ADD MAN DIFF? NO
[2018-01-20 06:10] LABS: BASOPHILS % 0.2 % (0.0-2.0); EOSINOPHILS # 0.2 10^3/ul (0.0-0.5); EOSINOPHILS % 1.8 % (0.0-7.0); HEMATOCRIT 27.3 % (37.0-47.0); HEMOGLOBIN 9.1 g/dl (12.0-16.0); LYMPHOCYTES # 2.1 10^3/ul (0.8-2.9); LYMPHOCYTES % 20.1 % (15.0-51.0); MEAN CORPUSCULAR HEMOGLOBIN 28.9 pg (29.0-33.0); MEAN CORPUSCULAR HGB CONC 33.3 g/dl (32.0-37.0); MEAN CORPUSCULAR VOLUME 86.7 fl (82.0-101.0); MEAN PLATELET VOLUME 11.7 fl (7.4-10.4); MONOCYTE # 0.9 10^3/ul (0.3-0.9); MONOCYTES % 9.1 % (0.0-11.0); NEUTROPHILS % 68.3 % (39.0-77.0); PLATELET COUNT 344 10^3/UL (140-415); RED BLOOD COUNT 3.15 10^6/ul (4.20-5.40); RED CELL DISTRIBUTION WIDTH 13.5 % (11.5-14.5)
[2018-01-20 06:10] LABS: WHITE BLOOD COUNT 10.2 10^3/ul (4.8-10.8)
[2018-01-20] MEDS: HYDROmorphONE 1 MG/ML SYG IV ×4 (06:22→22:44)
[2018-01-20 06:46] LABS: ALANINE AMINOTRANSFERASE 14 IU/L (13-69); ALBUMIN/GLOBULIN RATIO 0.76; ALKALINE PHOSPHATASE 101 IU/L (42-121); ANION GAP 17 (8-16); ASPARTATE AMINO TRANSFERASE 13 IU/L (15-46); BILIRUBIN,INDIRECT 0.2 mg/dl (0-1.1); BILIRUBIN,TOTAL 0.2 mg/dl (0.2-1.3); BLOOD UREA NITROGEN 23 mg/dl (7-20); CALCIUM 8.5 mg/dl (8.4-10.2); CARBON DIOXIDE 21 mmol/L (21-31); CHLORIDE 106 mmol/L (97-110); CREATININE 1.39 mg/dl (0.44-1.00); GLUCOSE 52 mg/dl (70-220); MAGNESIUM 1.6 mg/dl (1.7-2.5); PHOSPHORUS 4.5 mg/dl (2.5-4.9); POTASSIUM 4.6 mmol/L (3.5-5.1); SODIUM 139 mmol/L (135-144); TOTAL PROTEIN 6.9 g/dl (6.1-8.1)
[2018-01-20] MEDS: INSULIN ASPART [NOVOLOG] 3 ML PEN SC ×4 (07:50→21:00)
[2018-01-20] MEDS: DEXTROSE 50% 50 ML SYRINGE IV (08:40)
[2018-01-20] MEDS: SENNA/DOCUSATE NA (8.6MG/50MG) TAB PO (09:15)
[2018-01-20] MEDS: FAMOTIDINE 20 MG INJ IV (09:15)
[2018-01-20] MEDS: POLYETHYLENE GLYCOL 17 GM PACKET PO (09:15)
[2018-01-20] MEDS: ENOXAPARIN 40 MG/0.4 ML SYG SC (09:16)
[2018-01-20 09:58] LABS: GLUCOSE 205 mg/dl (70-220)
[2018-01-20] MEDS: MAGNESIUM SULFATE 2 GM/50 ML 50 ML IVPB (12:27)
[2018-01-20] MEDS: HYDROCODONE/APAP (10/325) TAB PO (20:43)
[2018-01-21] MEDS: METHOCARBAMOL 750 MG TAB PO ×2 (00:53→08:07)
[2018-01-21] MEDS: HYDROCODONE/APAP (10/325) TAB PO ×2 (04:56→15:21)
[2018-01-21] MEDS: HYDROmorphONE 1 MG/ML SYG IV (05:45)
[2018-01-21] MEDS: SENNA/DOCUSATE NA (8.6MG/50MG) TAB PO (08:08)
[2018-01-21] MEDS: FAMOTIDINE 20 MG TAB PO (08:08)
[2018-01-21] MEDS: POLYETHYLENE GLYCOL 17 GM PACKET PO (08:09)
[2018-01-21] MEDS: ENOXAPARIN 40 MG/0.4 ML SYG SC (08:21)
[2018-01-21] MEDS: INSULIN ASPART [NOVOLOG] 3 ML PEN SC ×2 (08:22→11:40)
[2018-01-21] MEDS: metFORMIN 500 MG TAB PO (09:20)
== END 2018-01-21 17:38 | disposition home or self-care (01) | DRG 330 ==
LOC: E/R 18:32 → MS1 01-07 01:27
PROC: 0DBB0ZZ Excision of Ileum, Open Approach (ICD-10-PCS; principal; 2018-01-11 15:30)
PROC: 0WUF0JZ Supplement Abdominal Wall with Synthetic Substitute, Open Approach (ICD-10-PCS; 2018-01-11 15:30)
DX: K56.50 Intestinal adhesions [bands], unspecified as to partial versus complete obstruction (principal); N17.9 Acute kidney failure, unspecified; I12.9 Hypertensive chronic kidney disease with stage 1 through stage 4 chronic kidney disease, or unspecified chronic kidney disease; Z53.31 Laparoscopic surgical procedure converted to open procedure; K43.9 Ventral hernia without obstruction or gangrene; R11.2 Nausea with vomiting, unspecified; D64.9 Anemia, unspecified; Z85.72 Personal history of non-Hodgkin lymphomas; E11.9 Type 2 diabetes mellitus without complications; Z72.0 Tobacco use; N18.3 Chronic kidney disease, stage 3 (moderate); E83.42 Hypomagnesemia
CPT/HCPCS: 36415; 71045; 74018; 74176; 74250; 76775; 80048; 80053; 81001; 81003; 82043; 82306; 82947; 82962; 83036; 83690; 83735; 84100; 84155; 84300; 84443; 84484; 85025; 85610; 85730; 86850; 86900; 86901; 88307; 89190; 93005; 96374; 96375; 97116; 97162; 97530; 99285-25